=== PATIENT | female | born 1955 | race Caucasian/White ===

== ENCOUNTER → 2023-03-22 | Day surgery (SDC) | payer MEDICAID, OTHER ==
[~2023-03-22] VITALS: Ht 149.9 cm; Wt 66.2 kg
[~2023-03-22] MED LIST: ASPI-1497 PO; ATOR20TA65 PO; BUPIVACAINE HCL/PF 0.5% (5MG/ML) 10ML ONE; COLC0.6C3 PO; DEXAMETHASONE 4MG/ML 1ML VIAL ONE; EVOL140P3 SQ; FENTANYL CITRATE/PF 50MCG/ML 2ML VIAL ONE; GLYCOPYRROLATE 0.2 MG/ML 2ML VIAL ONE; LABETALOL 5MG/ML SYR 20 MG/4 ML SYRINGE IV PRN; LISI2.5T47 PO; MEPERIDINE HCL/PF 25MG/ML CPJ IV PRN; MIDAZOLAM HCL 2 MG/2 ML VIAL ONE; NEOSTIGMINE METHYLSULFATE 1MG/ML 10 ML VIAL ONE; ONDANSETRON HCL 4MG/2ML INJ ONE; PROPOFOL 200MG/20ML VIAL IV ONE; ROCURONIUM BROMIDE 10MG/ML VIAL 5ML IV ONE; SKIN ADHESIVE 0.7 GM EA TOP ONE
[2023-03-22] MEDS: LACTATED RINGERS 1,000 ML IV SCH (08:10)
[2023-03-22 08:24] LABS: PARTIAL THROMBOPLASTIN TIME 25.4 sec (23.4-31.0); PROTHROMBIN TIME 10.9 sec (9.6-11.0)
[2023-03-22] MEDS: HYDROMORPHONE HCL/PF 2MG/ML CPJ IV PRN (11:11)
[2023-03-22] MEDS: ONDANSETRON HCL 4MG/2ML INJ IV PRN (12:05)
[2023-03-22 12:38] VITALS: BP 158/64; PULSE 66; RESP 22
[2023-03-22] MEDS: METOCLOPRAMIDE HCL 10MG/2ML VIAL IV NR (13:12)
[2023-03-22] MEDS: SCOPOLAMINE HYDROBROMIDE PATCH 72HR TD NR (15:09)
== END | disposition home or self-care (01) ==
LOC: OR 07:11
PROVIDERS: ATTEND Surgery
DX: K80.10 Calculus of gallbladder with chronic cholecystitis without obstruction (principal); I10 Essential (primary) hypertension; E78.00 Pure hypercholesterolemia, unspecified; M19.90 Unspecified osteoarthritis, unspecified site; Z79.82 Long term (current) use of aspirin; Z79.01 Long term (current) use of anticoagulants; Z79.899 Other long term (current) drug therapy; Z98.890 Other specified postprocedural states
CPT/HCPCS: 47562; 85610; 85730; 36415; 88304; 93005; J3010; J3490 ×3; J1100; J2765; J2250; J2405; J2704; J1170; J7030; J2710